=== PATIENT | female | born 1950 | race Caucasian/White ===

== ENCOUNTER 2018-02-10 03:27 | Inpatient (IN) | payer MEDICARE ==
[~2018-02-10] VITALS: Ht 175.3 cm; Wt 64.0 kg
--- NOTE | 2018-02-10 03:43 | NUR ---
PT AA/OX4 COMPLAINING OF LT SHOULDER PAIN. SECONDARY TO WITNESSED GLF. NEG LOC. ABRASION TO LT ELBOW. NO OTHER TRAUMA NOTED. NO S/S OF SOB. SKIN PINK, WARM, DRY. SMELLS OF ETOH. NAD. HYPERTENSIVE SBP 168. ALL OTHER VSS. STABLE CONDITION. AMBULATED TO HOSPITAL BED WITH STABLE GAIT. WILL CONTINUE TO MONITOR.
--- NOTE | 2018-02-10 04:19 | NUR ---
XRAY AT BEDSIDE
--- NOTE | 2018-02-10 04:53 | NUR ---
called ELIAS serrato, Drake Cleary is education diagnostician. MD Amaya is speaking with Drake
--- NOTE | 2018-02-10 05:21 | NUR ---
PT ASSIGNED TO 203 MS.
--- NOTE | 2018-02-10 05:39 | NUR ---
Clyde Lowery MD called. MD Lowery is speaking with MD Amaya
--- NOTE | 2018-02-10 05:40 | NUR ---
REPORT GIVEN TO M/S ANDREW LAINEZ
--- NOTE | 2018-02-10 05:44 | NUR ---
PT ASSIGNED TO TEL [id number]
[2018-02-10 05:46] LABS: BASOPHILS % (AUTO) 0.3 % (0.0-2.0); EOSINOPHILS % (AUTO) 0.1 % (0.0-6.0); HEMATOCRIT 47 % (33-45); HEMOGLOBIN 15.8 g/dL (11.5-14.8); LYMPHOCYTES # (AUTO) 1.1 /CMM (0.8-4.8); LYMPHOCYTES % (AUTO) 11.1 % (20.0-44.0); MEAN CORPUSCULAR HEMOGLOBIN 35 PG (26.0-33.0); MEAN CORPUSCULAR HGB CONC 33 g/dl (31.0-36.0); MEAN CORPUSCULAR VOLUME 105 fL (82-100); MONOCYTES # (AUTO) 0.3 /CMM (0.1-1.30); MONOCYTES % (AUTO) 3.5 % (2.0-12.0); NEUTROPHILS # (AUTO) 8.1 /CMM (1.8-8.9); PLATELET COUNT (AUTO) 216 /CMM (150-450); RDW COEFFICIENT OF VARIATION 14.6 (11.5-15.0); RED BLOOD CELL COUNT(AUTO) 4.53 MIL/uL (4.0-5.2); WHITE BLOOD COUNT (AUTO) 9.5 K/uL (4.3-11.0)
--- NOTE | 2018-02-10 05:48 | NUR ---
REPORT GIVEN TO GRAPHIC ART DESIGNERANDREW PATTERSON
[2018-02-10 06:01] LABS: INR 1.03 (0.87-1.13)
[2018-02-10 06:08] LABS: CALCIUM, SERUM 8.6 mg/dL (8.5-10.1); CREATININE 0.6 mg/dL (0.6-1.3); POTASSIUM 3.6 mmol/L (3.5-5.1)
--- NOTE | 2018-02-10 06:28 | NUR ---
PT TRANSP. TO TELE UNIT STABLE CONDITION. NAD. VSS.
[2018-02-10 06:30] VITALS: BP 152/82
--- NOTE | 2018-02-10 06:30 | NUR ---
MS/RN RECEIVE PATIENT FROM E.R. VIA WHEEL CHAIR AWAKE, ALERT, ORIENTED, COMFORTABLE, NO C/O PAIN, NO DISTRESS NOTED, MADE COMFORTABLE IN BED, WILL ENDORSE TO THE NEXT RN.
--- NOTE | 2018-02-10 07:00 | NUR ---
RN INITIAL NOTES PT IS AWAKE AND ALERT. PT ON CARDIAC MONITORING. IV ACCESS ON THE RIGHT AC 18G, PATENT, NO LEAKAGE. LEFT SHOULDER ON A SLING, COMPLAINS PAIN ONLY WHEN MOVING. CALL LIGHT WITHIN REACH, BED ON LOW.
[2018-02-10] MEDS ORDERED: KETOROLAC TROMETHAMINE INJ 30 MG/ML VIAL IV PRN (07:30)
[2018-02-10] MEDS ORDERED: LORAZEPAM 1 MG TABLET PO PRN (07:30)
[2018-02-10 08:00] VITALS: BP 137/71
[2018-02-10] MEDS ORDERED: LIDOCAINE 1%-EPI 1:100,000 20 ML VIAL TP STA (08:02)
[2018-02-10] MEDS: GABAPENTIN 300 MG CAPSULE PO SCH ×2 (08:37→16:46)
[2018-02-10] MEDS: LORAZEPAM 1 MG TABLET PO SCH ×3 (08:41→16:46)
[2018-02-10] MEDS ORDERED: LIDOCAINE HCL/PF 1% 30 ML VIAL IM STA (08:53)
[2018-02-10] MEDS ORDERED: FOLIC ACID 1 MG TABLET PO SCH (09:00)
[2018-02-10] MEDS ORDERED: NICOTINE PATCH (21MG) 21 MG PATCH.TD24 TD SCH (09:00)
[2018-02-10] MEDS ORDERED: THIAMINE HCL 100 MG TABLET PO SCH (09:00)
[2018-02-10] MEDS ORDERED: MAGNESIUM OXIDE 400 MG TABLET PO SCH (09:00)
[2018-02-10] MEDS ORDERED: HYDROMORPHONE INJ 0.5 MG/0.5 ML SYRINGE IV STA (09:07)
[2018-02-10] MEDS ORDERED: HYDROMORPHONE INJ 2 MG/ML DISP.SYRIN IV STA (09:13)
[2018-02-10 16:00] VITALS: BP_SYST 124; BP_SYST 177; BP_DIAS 72; BP_DIAS 96
--- NOTE | 2018-02-10 17:00 | NUR ---
ms learning coordinator notes Discharge instructions given to patient and able to understand. Health teaching and education rendered. Informed patient to follow up with primary health care physician in 1-2 weeks and follow up with Dr. Rodriguez (Ortho) in 1 week and per patient "I know their address and phone number, I will call them and make an appointment". IV discontinued and pressured applied to prevent bleeding. Skin is intact. PNA and flu vaccine not given patient refused vaccinations, and per patient I never had any vaccinations and I don't believe in vaccinations. Explained the risk and benefits x 3 and still refused. Patient left via ambulatory and tolerated well, no complaint of pain or discomfort noted, nor chest pain, on room air, in stable condition. Vital signs checked and recorded. MD and charge nurse aware.
== END 2018-02-10 16:59 | disposition home or self-care (01) | DRG 563 ==
LOC: ER 03:29 → MEDSG2 05:21 → MED 05:45 → TELE 06:09 → MED 10:06
PROVIDERS: ADMIT Internal Medicine; ATTEND Internal Medicine
PROC: 0RSKXZZ Reposition Left Shoulder Joint, External Approach (ICD-10-PCS; principal; 2018-02-10)
DX: S42.252A Displaced fracture of greater tuberosity of left humerus, initial encounter for closed fracture (principal); F10.239 Alcohol dependence with withdrawal, unspecified; J42 Unspecified chronic bronchitis; W19.XXXA Unspecified fall, initial encounter; Y92.9 Unspecified place or not applicable; S43.015A Anterior dislocation of left humerus, initial encounter; Z87.891 Personal history of nicotine dependence; Y90.9 Presence of alcohol in blood, level not specified
CPT/HCPCS: 36415; 71045-TC; 73020; 73030-TC; 80048-TC; 85025-TC; 85730-TC; A4606; J1170; J3490; Z7610